=== PATIENT | female | born 1940 | race Two or more races ===

== ENCOUNTER → 2017-05-19 | Outpatient (CLI) | payer MEDICARE ==
--- NOTE | 2017-05-19 08:52 | MR ---
EXAMINATION TYPE: MR lumbar spine wo con DATE OF EXAM: 05/19/2017 COMPARISON: Plain film 05/01/2017 HISTORY: Low back pain TECHNIQUE: Multiplanar, multisequence images of the lumbar spine were acquired. L1-L2: Normal disc appearance without desiccation. No herniation, protrusion or disc bulging. No ca nal stenosis is present. Foramina are patent bilaterally. L2-L3: Listhesis contributes to cause foraminal encroachment greater on the right likely contributed by the scoliosis. Facet arthropathy with hypertrophic change of the ligamentum flavum causes some mas s effect on the right lateral recess. No significant central stenosis. No sizable disc herniation. L3-L4: Normal disc appearance without desiccation. No herniation, protrusion or disc bulging. No ca nal stenosis is present. Foramina are patent bilaterally. L4-L5: Circumferential disc bulge causes only minimal anterior mass effect on the thecal sac. No sign ificant central stenosis or foraminal encroachment. Facet arthropathy with hypertrophy of the ligamen helena flavum encroaches on the lateral recesses. L5-S1: The listhesis contributes to cause bilateral foraminal encroachment. No sizable disc herniatio n. There is some facet arthropathy change. Anterolisthesis grade 1 L5-S1, L2-3 as on plain film. Lumbar vertebral bodies show preserved height. Loss of disc height and signal present at L5-S1 and L2-3, there is endplate discogenic marrow signal change at multiple levels, spondylosis. Schmorl's node present inferior endplate L3. There is a mild spinal curvature. Bilateral spondylolysis at L5. No paraspinal masses are identified. Conus medullar is has a normal appearance. IMPRESSION: Spondylolisthesis, spondylolysis L5-S1, degenerative disc disease and facet arthropathy as described.
== END | disposition home or self-care (01) ==
LOC: RADMRIMAIN 07:29
DX: M43.17 Spondylolisthesis, lumbosacral region (principal); M51.37 Other intervertebral disc degeneration, lumbosacral region; M46.07 Spinal enthesopathy, lumbosacral region
CPT/HCPCS: 72148

== ENCOUNTER → 2020-07-19 | Outpatient (CLI) | payer MEDICARE ==
--- NOTE | 2020-07-20 08:35 | XR ---
Right hip HISTORY: Low back pain, radiation 2 views of the right hip Bone mineralization is mildly reduced. Joint spaces and alignment maintained. Question some chondroca lcinosis, hypertrophic change at at the hip joint. Surgical coils are present in the right hemipelvis . There are dense vascular calcifications noted incidentally. No fracture or dislocation. 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
--- NOTE | 2020-07-20 08:39 | XR ---
Lumbar spine HISTORY: Pain with radiation 3 views the lumbar spine correlated to prior exam 05/01/2017, MRI 05/19/2017 Multilevel spondylosis with spinal curvature again noted. Surgical coils are present over the upper a bdomen and pelvis as on previous exam. Anterolisthesis grade 1 L2-3 with associated loss of disc heig ht and vacuum phenomenon. Loss of disc height also present L5-S1 with anterolisthesis grade 1 to grad e 2. Sclerosis present in the posterior elements of the lumbar spine. Bone mineralization is reduced. Loss of disc height also present L3-4. Dense vascular calcifications in the aortoiliac distribution. Bilateral spondylolysis at L2 and L5. 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 Osteopenia.
== END | disposition home or self-care (01) ==
LOC: RAD 18:04
PROVIDERS: ATTEND Family Medicine
DX: M43.16 Spondylolisthesis, lumbar region (principal); M51.36 Other intervertebral disc degeneration, lumbar region; M47.816 Spondylosis without myelopathy or radiculopathy, lumbar region; M85.88 Other specified disorders of bone density and structure, other site; M25.559 Pain in unspecified hip
CPT/HCPCS: 72100; 73501

== ENCOUNTER 2022-10-21 09:30 | Emergency (ER) | payer MEDICARE ==
[2022-10-21 09:44] VITALS: BP 121/82; PULSE 60; RESP 20; TEMP 98.4
--- NOTE | 2022-10-21 10:09 | ED ---
Extremity Problem HPI - General Chief complaint: Extremity Injury, Upper Stated complaint: Hand swelling Time Seen by Provider: 10/21/22 09:52 Source: patient, RN notes reviewed Mode of arrival: ambulatory Limitations: no limitations - History of Present Illness Initial comments: This is an 82-year-old female who presents to the emergency department for left hand swelling. States that this has been present for the last 5 days. Denies any known injuries. States that last night this felt very hot. She has not noticed any swelling going up the arm. She has a history of gout in her feet, however this does not feel the same. She does not have any significant pain associated with this. Also denies any fevers. Denies any history of blood clots. She is not taking any blood thinners. Denies any fevers, chills, sore throat, cough, dyspnea, chest pain, palpitations, abdominal pain, nausea, vomiting, diarrhea, back pain, or headaches. MD Complaint: extremity swelling Onset/Timin -: days(s) Location: left, other (hand) History of Same: No - Related Data Previous Rx's Medication Instructions Recorded Cephalexin [Keflex] 500 mg PO Q6HR 5 Days #20 cap 10/21/22 Indomethacin [Indocin] 50 mg PO TID 3 Days #9 cap 10/21/22 Allergies Allergy/AdvReac Type Severity Reaction Status Date / Time amoxicillin Allergy Unknown Verified 10/21/22 09:44 meperidine [From Demerol] Allergy Unknown Verified 10/21/22 09:44 morphine Allergy Unknown Verified 10/21/22 09:44 Review of Systems ROS Statement: Those systems with pertinent positive or pertinent negative responses have been documented in the HPI. ROS Other: All systems not noted in ROS Statement are negative. Past Medical History Past Medical History: Diabetes Mellitus, Hyperlipidemia, Hypertension, Thyroid Disorder Additional Past Medical History / Comment(s): diverticulitis History of Any Multi-Drug Resistant Organisms: None Reported Past Surgical History: Bowel Resection, Cholecystectomy, Hysterectomy, Joint Replacement Additional Past Surgical History / Comment(s): colostomy with reversal, komal shoulder, r knee replacement Past Psychological History: No Psychological Hx Reported Smoking Status: Never smoker Past Alcohol Use History: None Reported Past Drug Use History: None Reported General Exam Limitations: no limitations General appearance: alert, in no apparent distress Head exam: Present: atraumatic, normocephalic, normal inspection Respiratory exam: Present: normal lung sounds bilaterally. Absent: respiratory distress, wheezes, rales, rhonchi, stridor Cardiovascular Exam: Present: regular rate, normal rhythm, normal heart sounds. Absent: systolic murmur, diastolic murmur, rubs, gallop, clicks Extremities exam: Present: other (Mild swelling to the dorsal aspect of the left hand. No significant tenderness. Minor increase in heat and minor overlying erythema. 2+ radial pulses and capillary refill less than 1 second.) Neurological exam: Present: alert, oriented X3, CN II-XII intact Psychiatric exam: Present: normal affect, normal mood Course Vital Signs 10/21/22 09:40 Temperature 98.4 F Pulse Rate 60 Respiratory 20 Rate Blood Pressure 121/82 O2 Sat by Pulse 99 Oximetry Medical Decision Making - Medical Decision Making This is an 82-year-old female who presents to the emergency department for left hand swelling. Was pt. sent in by a medical professional or institution? @ -No Did you speak to anyone other than the patient for history? @ -Her daughter Did you review nursing and triage notes? @ -Agree, accurate with regards to the patient's symptoms. Were old charts reviewed? @ -No Differential Diagnosis? @ -Cellulitis, DVT, gout, arthritis, fluid retention, trauma, allergic reaction, thoracic outlet syndrome, this is not meant to be an all-inclusive list. X-rays interpreted by me (1pt min.)? @ -X-ray of the left hand obtained revealing diffuse soft tissue swelling. What testing was considered but not performed? (CT, X-rays, U/S, labs)? Why? @ None What meds were considered but not given? Why? @ -None Did you discuss the management of the patient with other professionals? @ -No Did you reconcile home meds? @ -No Was smoking cessation discussed for >3mins.? @ -No Was critical care preformed (if so, how long)? @ -No Were there social determinants of health that impacted care today? How? (Homelessness, low income, unemployed, alcoholism, drug addiction, transportation, low edu. Level, literacy, decrease access to med. care, [facility], rehab)? @ -No Was there de-escalation of care discussed even if they declined? (Discuss DNR or withdrawal of care, Hospice)? @ -No What co-morbidities impacted this encounter? (DM, HTN, Smoking, COPD, CAD, Cancer, CVA, Hep., AIDS, mental health diagnosis, sleep apnea, morbid obesity)? @ -Diabetes, hypertension, hyperlipidemia, gout. Was patient admitted / discharged? @ -Discharged. X-ray of the left hand obtained with my interpretation listed above. Ultrasound obtained as well identifying no evidence of a DVT. Findings most suspicious for a cellulitis or gout. Prescription for Keflex and indomethacin provided to cover for both potential problems. Dosing instructions reviewed. Instructed her to follow-up with her primary care provider to ensure that symptoms are starting to improve. Drug Therapy requiring intensive monitoring for toxicity (Heparin, Nitro, Insulin, Cardizem)? @ -None Were any procedures done? @ -None Diagnosis/symptom? @ -Left hand swelling. Acute, or Chronic, or Acute on Chronic? @ -acute Uncomplicated (without systemic symptoms) or Complicated (systemic symptoms)? @ -uncomplicated Side effects of treatment? @ -Adverse effects to the Keflex or indomethacin. Exacerbation, Progression, or Severe Exacerbation] @ -Not applicable Poses a threat to life or bodily function? @ -The impact bodily function depending on the severity. Return precautions reviewed in depth, the patient is instructed to return to the emergency department with any new, worsening, or concerning symptoms. Patient verbalized understanding. This case was discussed in detail with the attending ED physician. Presentation, findings, and treatment plan discussed in detail as well. - Radiology Data Radiology results: report reviewed, image reviewed Disposition Clinical Impression: Swelling of left hand Disposition: HOME SELF-CARE Instructions (If sedation given, give patient instructions): Cellulitis (ED), Gout (ED) Additional Instructions: Return to the emergency department with any new, worsening, or concerning symptoms. Take the antibiotic as prescribed for 5 days and the indomethacin as prescribed for 3 days. Do not take other [id number] anti-inflammatories such as ibuprofen with the indomethacin. Follow up with your primary care provider next week to ensure that the swelling is starting to improve. Prescriptions: Indomethacin [Indocin] 50 mg PO TID 3 Days #9 cap Cephalexin [Keflex] 500 mg PO Q6HR 5 Days #20 cap Is patient prescribed a controlled substance at d/c from ED?: No Referrals: Donavan Cui DO [Primary Care Provider] - 1-2 days
--- NOTE | 2022-10-21 10:30 | XR ---
EXAMINATION TYPE: XR hand complete LT DATE OF EXAM: 10/21/2022 10:19 AM INDICATION: Patient age:Female; 82 years old; Reason for study: Hand swelling; COMPARISON: None TECHNIQUE: Frontal, lateral and oblique views of the left hand were obtained. FINDINGS: Multifocal osteoporosis changes worse at the first digit carpometacarpal joint and also inv olving the interphalangeal joints and intercarpal joints. There is atherosclerosis of the arterial va sculature. There is mild ulnar negative variance. There is soft tissue swelling throughout the hand. No evidence of osseous erosion. No fracture visualized. IMPRESSION: 1. No acute osseous pathology. 2. Soft tissue swelling throughout the hand which is nonspecific. 3. Multifocal osteoarthrosis worse at the first digit carpometacarpal joint.
--- NOTE | 2022-10-21 12:11 | US ---
EXAMINATION TYPE: US venous doppler duplex UE LT DATE OF EXAM: 10/21/2022 COMPARISON: NONE CLINICAL HISTORY: Left hand swelling. SIDE PERFORMED: Left Left Arm: Negative for DVT Grayscale, color doppler, spectral doppler imaging performed of the deep veins of the upper extremiti es. There is normal flow, compressibility and vascular waveforms. IMPRESSION: No evidence of left upper extremity deep vein thrombosis.
== END 2022-10-21 12:46 | disposition home or self-care (01) ==
LOC: EC 09:30
DX: M79.89 Other specified soft tissue disorders (principal); M19.042 Primary osteoarthritis, left hand; E11.9 Type 2 diabetes mellitus without complications; I10 Essential (primary) hypertension; Z88.0 Allergy status to penicillin; Z88.5 Allergy status to narcotic agent
CPT/HCPCS: 99284

== ENCOUNTER → 2023-05-17 | Outpatient (CLI) | payer MEDICARE ==
--- NOTE | 2023-05-17 18:13 | XR ---
EXAMINATION TYPE: XR Hip Complete 2 views RT DATE OF EXAM: 05/17/2023 Comparison: None Clinical History: 82-year-old female M25.551 PAIN IN RIGHT HIP Findings: Mild degenerative spurring at the right hip. Some synovial calcifications are present and are nonspec ific, possibly relating to gout or CPPD. Coils at the lower pelvis from prior mesh repair. No acute f racture, subluxation, or dislocation. Vascular calcifications noted. Impression: Mild right hip OA. Some synovial calcification at the right hip is nonspecific. It may be seen with CPPD or gout including subclinical gout.
== END | disposition home or self-care (01) ==
LOC: RADXRMAIN 09:46
DX: M16.11 Unilateral primary osteoarthritis, right hip (principal); M67.851 Other specified disorders of synovium, right hip
CPT/HCPCS: 73502

== ENCOUNTER → 2025-05-05 | Outpatient (CLI) | payer MEDICARE ==
--- NOTE | 2025-05-05 11:18 | XR ---
EXAMINATION TYPE: XR foot limited RT DATE OF EXAM: 05/05/2025 11:08 AM COMPARISON: None CLINICAL INDICATION: Female, 84 years old with history of M79.671 Right foot pain R22.41 swelling; PH H, pain TECHNIQUE: XR foot limited RT examined in the AP, oblique, and lateral projections. FINDINGS: No evidence of any acute osseous pathology. Calcaneal Achilles enthesophyte. Calcaneal plantar spu rring is present. Multifocal degeneration changes throughout the joints of the foot with osteophyte f ormation and joint space narrowing. IMPRESSION: 1. No evidence of acute fracture. 2. Multifocal degeneration changes throughout the joints of the foot. [facility], , 05/05/2025 11:15 AM
== END | disposition home or self-care (01) ==
LOC: RADXRMAIN 10:30
PROVIDERS: ATTEND Family Medicine
DX: M19.071 Primary osteoarthritis, right ankle and foot (principal)